=== PATIENT | male | born 1945 | race Caucasian/White ===

== ENCOUNTER 2020-07-04 13:15 | Outpatient (CLI) | payer MEDICARE, BC ==
[2020-07-04 16:23] LABS: ALT (SGPT) 21 U/L (8-55); AST (SGOT) 37 U/L (5-34); Albumin 4.2 g/dL (3.4-4.8); Alkaline Phosphatase 100 U/L (40-110); Anion Gap 20 mmol/L (10-20); BUN (Urea Nitrogen) 13 mg/dL (8.4-25.7); Calc. Creatinine Clearance 0 mL/min (70-130); Calcium 9.6 mg/dL (7.8-10.44); Carbon Dioxide 23 mmol/L (23-31); Chloride 100 mmol/L (98-107); Glucose 64 mg/dL (83-110); Potassium 4.6 mmol/L (3.5-5.1); Protein, Total 7.2 g/dL (5.8-8.1); Sodium 138 mmol/L (136-145)
[2020-07-04 16:25] LABS: #Basophils 0.1 10x3/uL (0.0-0.2); #Eosinphils 0.1 10x3/uL (0.0-0.5); #Monocytes 1.2 10x3/uL (0.0-1.1); #Neutrophils 5.2 10x3/uL (1.5-8.4); %Basophils 0.6 % (0.0-2.0); %Eosinophils 1.7 % (0.0-6.0); %Lymphocytes 17.7 % (18.0-47.0); %Monocytes 14.8 % (0.0-10.0); %Neutrophils 64.5 % (40.0-75.0); Hemoglobin 16.5 g/dL (13.5-17.5); Mean Corpuscular HGB CONC 32.8 g/dL (32.0-36.0); Mean Corpuscular Hemoglobin 31.2 pg (27.0-33.0); Mean Corpuscular Volume 95.1 fl (81.2-95.1); Mean Platelet Volume 10.8 fl (7.4-10.4); Platelet Count 262 10x3/uL (150-450); RBC Distribution Width 14.5 % (11.5-14.5); Red Blood Cell (RBC) Count 5.29 10x6/uL (4.32-5.72); White Blood Cell (WBC) Count 8.1 10x3/uL (3.5-10.5)
[2020-07-05 01:31] LABS: SARS-CoV-2 PCR by NAA Not Detected (NotDetected)
== END 2020-07-04 13:16 | disposition home or self-care (01) ==
LOC: LABBT 13:15
PROVIDERS: ATTEND Internal Medicine Cardiovascular Disease
DX: Z01.812 Encounter for preprocedural laboratory examination (principal); Z20.822 Contact with and (suspected) exposure to COVID-19
CPT/HCPCS: 80053; 85025; U0003; U0005; 87635

== ENCOUNTER 2020-07-07 06:07 | Day surgery (SDC) | payer MEDICARE, BC ==
[2020-07-06 09:05] VITALS: BMI 54.7
[2020-07-07] MEDS ORDERED: Lidocaine 1% (PF) 30 ML VIAL ONE (06:41)
[2020-07-07] MEDS ORDERED: Nitroglycerin 100MG/250ML BOT 250 ML ONE (06:46)
[2020-07-07] MEDS ORDERED: Verapamil 5 MG/2 ML VIAL ONE (06:46)
[2020-07-07] MEDS ORDERED: Heparin 10,000 UNITS/ 10 ML VIAL ONE ×2 (06:46→08:39)
[2020-07-07] MEDS ORDERED: Diazepam 5 MG TAB ONE (06:55)
[2020-07-07] MEDS ORDERED: Fentanyl 100 MCG/2 ML VIAL ONE (07:23)
[2020-07-07] MEDS ORDERED: Midazolam HCl 2 mg/2 ml Vial ONE (07:23)
[2020-07-07] MEDS ORDERED: Protamine Sulfate 50 MG/5 ML VIAL ONE (09:02)
[2020-07-07] MEDS ORDERED: Iopamidol 370 76% 100 ML VIAL ONE (10:30)
[2020-07-07] MEDS ORDERED: Iopamidol 370 76% 50 ML VIAL FS ONE (10:30)
[2020-07-07] MEDS ORDERED: Furosemide 20 MG/2 ML VIAL ONE (14:09)
[2020-07-07] MEDS ORDERED: Sodium Chloride 0.9% 10 ML ONE (14:11)
== END 2020-07-07 15:40 | disposition home or self-care (01) ==
LOC: CCL 06:07
PROVIDERS: ATTEND Internal Medicine Cardiovascular Disease
PROC: 4A023N7 Measurement of Cardiac Sampling and Pressure, Left Heart, Percutaneous Approach (ICD-10-PCS; principal; 2020-07-07)
PROC: B2111ZZ Fluoroscopy of Multiple Coronary Arteries using Low Osmolar Contrast (ICD-10-PCS; 2020-07-07)
DX: I25.10 Atherosclerotic heart disease of native coronary artery without angina pectoris (principal); I35.0 Nonrheumatic aortic (valve) stenosis; I10 Essential (primary) hypertension; E11.9 Type 2 diabetes mellitus without complications; J98.4 Other disorders of lung; E78.5 Hyperlipidemia, unspecified; G47.33 Obstructive sleep apnea (adult) (pediatric); E66.9 Obesity, unspecified; Z68.43 Body mass index [BMI] 50.0-59.9, adult; Z79.4 Long term (current) use of insulin; Z79.899 Other long term (current) drug therapy
CPT/HCPCS: 76942; 85347; 93460; 99152; 99153; C1769; J0153; J1644; J1940; J2001; J2250; J2720; J3010; J7620; Q9967